=== PATIENT | male | born 1985 | race Caucasian/White ===

== ENCOUNTER 2018-09-24 11:12 | Emergency (ER) | payer SELFPAY ==
[2018-09-24] VITALS (8 sets, daily range): BP systolic 63–94; BP diastolic 31–62
[~2018-09-24] VITALS: Ht 172.7 cm
--- NOTE | ~2018-09-24 | EKG ---
[place], [place] ELECTROCARDIOGRAM REPORT NAME: HARJIT LARA UNIT #: [id number] ROOM: DOCTOR: EPIPHANY DRAFT REPORT BIRTHDATE: [birth year] [facility] Test Date: 2018-09-24 Test Time: 11:28:22 Pat Name: HARJIT LARA Department: Room: [facility] Gender: M Digital Account Supervisor: 20 : 1985 Requested By: DONAVAN HALE Order Number: [id number] Reading MD: Marcus Arias MD Measurements Intervals [place] Rate: 96 P: 73 ME: 183 QRS: 71 QRSD: 132 T: 17 QT: 416 QTc: 526 Interpretive Statements Sinus rhythm Nonspecific intraventricular conduction delay Baseline wander in lead(s) I,II,aVR,aVL,V6 No previous ECG available for comparison Electronically Signed On 09-25-2018 6:51:52 PDT by Marcus Arias MD CM:EKGRPT:ELECTROCARDIOGRAM REPORT [id number] DONAVAN ANDRE DRAFT REPORT DONAVAN HALE M.D.
[~2018-09-24 11:12] MED LIST: PHENERGAN25 MG RC
[2018-09-24 11:53] LABS: ABG HCO3 1.8 mmol/l (22-26); ABG O2 SATURATION 98.7 % (95-97)
[2018-09-24 11:54] LABS: ABG BASE EXCESS -30.6 mmol/L (-2.0-2.0)
[2018-09-24 11:56] LABS: ARTERIAL BLOOD GAS PH 6.924 (7.35-7.45)
[2018-09-24 12:03] LABS: HEMATOCRIT 42.2 % (42.0-52.0); HEMOGLOBIN 11.3 g/dl (14.0-18.0); MEAN CELL VOLUME 111.6 fl (80.0-94.0); MEAN CORPUSCULAR HGB 29.9 pg (27.0-31.0); MEAN CORPUSCULAR HGB CONC 26.8 g/dl (33.0-37.0); MEAN PLATELET VOLUME 11.8 fl (9.6-12.3); PLATELET COUNT AUTOMATED 488 10*3/uL (130-400); RED BLOOD COUNT 3.78 10*6/uL (4.50-5.90); WHITE BLOOD COUNT 29.9 10*3/uL (4.8-10.8)
[2018-09-24 12:21] LABS: ALBUMIN 2.7 gm/dl (3.1-4.5); CREATININE 3.81 mg/dL (0.70-1.30); TOTAL PROTEIN 6.4 gm/dL (6.4-8.2)
[2018-09-24 12:27] LABS: PLATELET SUFFICIENCY HIGH (NORMAL); TOTAL CELLS COUNTED 100 #CELLS
[2018-09-24 12:28] LABS: BURR CELLS FEW
[2018-09-24 12:31] LABS: POTASSIUM 6.6 mmol/L (3.5-5.1)
[2018-09-24 13:53] LABS: URINE AMPHETAMINES < 1000 (1000ng/ml); URINE BARBITURATES < 200 (200ng/ml); URINE BENZODIAZEPINES < 200 (200ng/ml); URINE CANNABINOIDS (THC) < 50 (50ng/ml); URINE COCAINE < 300 (300ng/ml); URINE METHADONE < 300 (300ng/ml); URINE OPIATES < 300 (300ng/ml)
[2018-09-24 14:03] LABS: URINE PHENCYCLIDINE < 25 (25ng/ml)
== END 2018-09-24 15:13 | disposition short-term general hospital (02) ==
LOC: ED 11:12 → EDHOLD 12:43 → ED 15:13
PROVIDERS: Emergency Medicine
DX: E11.10 Type 2 diabetes mellitus with ketoacidosis without coma (principal)